=== PATIENT | male | born 1960 | race Caucasian/White ===

== ENCOUNTER 2018-07-17 00:23 | Emergency (ER) | payer BC ==
[2018-07-17 00:31] VITALS: RESP 20; TEMP 97.3; O2SAT 99
[2018-07-17] MEDS ORDERED: HYDROMORPHONE HCL 2 MG/ML SOL IV ONE (01:04)
[2018-07-17] MEDS ORDERED: ONDANSETRON HCL 4 MG/2 ML SOL IV ONE (01:04)
[2018-07-17] MEDS ORDERED: ONDANSETRON HCL 4 MG/2 ML SOL ONE (01:06)
[2018-07-17] MEDS ORDERED: HYDROMORPHONE 1 MG/ML SYRINGE ONE (01:06)
[2018-07-17] MEDS ORDERED: HYDROMORPHONE 1 MG/ML SYRINGE IV ONE (01:11)
[2018-07-17 01:22] LABS: BASOPHILS % (AUTO) 0 % (0-3); EOSINOPHILS % (AUTO) 0 % (0-9); HEMATOCRIT 47 % (39-53); HEMOGLOBIN 15.5 gm/dl (13.5-17.7); LYMPHOCYTES % (AUTO) 6.2 % (10-50); MEAN CORPUSCULAR VOLUME 85 fL (80-100); MONOCYTES % (AUTO) 1.5 % (0-12); NEUTROPHILS % (AUTO) 91.8 % (37-80)
[2018-07-17 01:37] LABS: ALBUMIN 3.8 gm/dl (3.4-5.0); BILIRUBIN,TOTAL 0.6 mg/dl (0.2-1.0); CALCIUM 8.4 mg/dl (8.5-10.1); CARBON DIOXIDE 25.8 mEq/L (21-32); CREATININE 0.88 mg/dl (0.80-1.30); POTASSIUM 3.6 mMol/L (3.5-5.1); TOTAL PROTEIN 6.9 gm/dl (6.4-8.2)
[2018-07-17 01:42] LABS: HEMOGLOBIN A1C 6.5 % (4.8-6.0)
[2018-07-17 01:46] LABS: APPEARANCE,URINE Clear; BILIRUBIN,URINE NEGATIVE (NEGATIVE); COLOR,URINE Yellow; GLUCOSE, URINE (UA) 2+ (NEGATIVE); KETONES,URINE 2+ (NEGATIVE); LEUKOCYTE ESTERASE ,URINE NEGATIVE (NEGATIVE); NITRATE,URINE NEGATIVE (NEGATIVE); OCCULT BLOOD,URINE 1+ (NEG-TRACE); UROBILINOGEN,URINE 0.2 (0.2-1.0 EU)
[2018-07-17 02:09] LABS: BACTERIA 1+ (< 1+); CRYSTALS NEGATIVE (0-3 AVE/HPF); EPITHELIAL CELLS 0-2 (SQUAMOUS); RBC,URINE 0-4 (0-3AV/HPF); WBC,URINE 0-1 (0-5AV/HPF)
[2018-07-17 02:57] VITALS: BP 135/85; PULSE 56
== END 2018-07-17 02:55 | disposition short-term general hospital (02) ==
LOC: ED 00:23
DX: K40.90 Unilateral inguinal hernia, without obstruction or gangrene, not specified as recurrent (principal); E11.9 Type 2 diabetes mellitus without complications; I10 Essential (primary) hypertension; Z72.0 Tobacco use
CPT/HCPCS: 36415; 80053; 81001; 83036; 85025; 96374; 96375; 99283; 99285; J2405; J1170